=== PATIENT | female | born 1990 | race Caucasian/White ===

== ENCOUNTER 2019-08-13 13:36 | Outpatient (CLI) | payer BC ==
--- NOTE | 2019-08-13 14:41 | RAD ---
Hysterosalpingogram HISTORY: Infertility. FINDINGS: After explaining the procedure and answering all questions, the uterine cervix was carefull y exposed and prepped with Betadine. Careful technique to introduce an HSG catheter to the lower uterine segment. Balloon was inflated. Small amount of Isovue contrast was carefully instilled into the endometrial cavity, showing a normal capacity and contour. Immediate opacification of each fallopian tube with brisk and bilateral spill. Excess contrast was aspirated and catheter removed. Patient tolerated procedure well and was d ismissed in good condition. IMPRESSION: Patent fallopian tubes. Normal HSG.
== END 2019-08-13 13:37 | disposition home or self-care (01) ==
LOC: RAD 13:36
PROVIDERS: ATTEND Obstetrics & Gynecology
DX: N97.1 Female infertility of tubal origin (principal)
CPT/HCPCS: 58340; 74740

== ENCOUNTER 2024-11-05 10:43 | Outpatient (CLI) | payer BC | END 2024-11-05 10:44 | disposition home or self-care (01) | LOC: EKG 10:43 | PROVIDERS: ATTEND Internal Medicine | DX: R07.9 Chest pain, unspecified (principal) | CPT/HCPCS: 93005; 93010; 93017 ==